=== PATIENT | female | born 1995 | race Caucasian/White ===

== ENCOUNTER 2020-12-30 11:12 | Emergency (ER) | payer MEDICAID ==
[~2020-12-30] VITALS: Ht 167.6 cm; Wt 119.3 kg
[2020-12-30 11:14] VITALS: BP 131/83
--- NOTE | 2020-12-30 11:17 | NUR ---
ambulated to bed 6
[2020-12-30] MEDS ORDERED: NACL 0.9% 1,000 ML IV ONE (11:40)
[2020-12-30] MEDS ORDERED: METOCLOPRAMIDE 10 MG/2 ML INJ VIAL IVP ONE (11:40)
[2020-12-30] MEDS ORDERED: ALUMINUM HYD/MAG/SIMETHICONE 30 ML UDC PO ONE (11:40)
[2020-12-30] MEDS ORDERED: HYDROcodone/APAP 5/325 MG 1 TAB TAB PO ONE (11:40)
--- NOTE | 2020-12-30 11:49 | NUR ---
ULTRASOUND AT BEDSIDE
[2020-12-30 12:00] LABS: APPEARANCE,URINE HAZY (CLEAR); BILIRUBIN,URINE 1+ (NEGATIVE); BLOOD, URINE NEGATIVE (NEGATIVE); COLOR,URINE YELLOW (YELLOW); LEUKOCYTE ESTERASE ,URINE TRACE (NEGATIVE); NITRITE, URINE NEGATIVE (NEGATIVE); UGLUCOSE NEGATIVE (NEGATIVE)
[2020-12-30 12:01] LABS: BASOPHILS % (AUTO) 0.3 % (0.0-2.0); EOSINOPHILS # (AUTO) 0.1 K/uL (0-0.4); HEMATOCRIT 39.9 % (36-48); HEMOGLOBIN 13.3 g/dL (12.0-16.0); LYMPHOCYTES # (AUTO) 1.7 K/uL (2.5-16.5); LYMPHOCYTES % (AUTO) 24.1 % (20.5-51.1); MEAN CORPUSCULAR HEMOGLOBIN 29 pg (27-31); MEAN CORPUSCULAR HGB CONC 33 g/dL (33-37); MEAN CORPUSCULAR VOLUME 86.1 fL (80-94); MONOCYTES # (AUTO) 0.5 K/uL (0.8-1.0); MONOCYTES % (AUTO) 6.6 % (1.7-9.3); NEUTROPHILS # (AUTO) 4.8 K/uL (1.8-7.7); PLATELET COUNT (AUTO) 368 K/uL (140-450); RED BLOOD CELL COUNT(AUTO) 4.64 MIL/uL (4.20-5.40); RED CELL DISTRIBUTION WIDTH 13.8 % (11.6-13.7); WHITE BLOOD COUNT (AUTO) 7.1 K/uL (4.8-10.8)
--- NOTE | 2020-12-30 12:04 | NUR ---
25 YEAR OLD FEMALE COMPLAINS OF ABDOMINAL PAIN, NAUSEA, VOMITTING X 1 WEEK. PT ALSO STATES THAT SHE HAS HAD BURNING URINATION WITH INCREASED FREQUENCY. PT AOX4, BREATHING EVEN AND UNLABORED, SKIN WARM AND DRY. BED IN LOWEST POSITION, LOCKED, BED RAIL UPX1. PMH - HYPOGLYCEMIA, GASTROPARESIS, MIGRAINE ALLERGIES - SULFAS, RASPBERRY
[2020-12-30 12:10] LABS: RBC,URINE 0-5 /HPF (0-5)
[2020-12-30 12:16] LABS: ALBUMIN 3.5 g/dL (3.4-5.0); ANION GAP 11.8 (8-16); CARBON DIOXIDE 25.1 mmol/L (21-32); CREATININE 0.8 mg/dL (0.6-1.3); POTASSIUM 3.9 mmol/L (3.5-5.1); TOTAL BILIRUBIN 0.5 mg/dL (0.0-1.0)
[2020-12-30] MEDS ORDERED: HALOPERIDOL IM 5 MG/ML VIAL IVP ONE (13:05)
--- NOTE | 2020-12-30 13:22 | NUR ---
CONSENT SIGNED BY PT FOR CT WITH CONTRAST.
--- NOTE | 2020-12-30 14:29 | NUR ---
PATIENT GIVEN CRACKERS AND JUICE FOR PO CHALLENGE
[2020-12-30] MEDS ORDERED: ONDA4TAB PO (14:44)
[2020-12-30 15:06] VITALS: BP 131/83
--- NOTE | 2020-12-30 15:06 | NUR ---
Patient discharged with v/s stable. Written and verbal after care instructions about abdominal pain given and explained. Patient alert, oriented and verbalized understanding of instructions. Ambulatory with steady gait. All questions addressed prior to discharge. ID band removed. Patient advised to follow up with PMD. Rx of zofran given. Patient educated on indication of medication including possible reaction and side effects. Opportunity to ask questions provided and answered.
== END 2020-12-30 15:06 | disposition home or self-care (01) ==
LOC: MED 11:12
DX: R10.32 Left lower quadrant pain (principal); R11.10 Vomiting, unspecified; Z79.899 Other long term (current) drug therapy; Z91.018 Allergy to other foods
CPT/HCPCS: 36415; 71045; 74177; 76700; 80053; 81001; 81025; 83690; 85025; 87086; 93005; 96361; 96374; 96375; 99285; J1630; J2765; J7030; Q9967; U0003

== ENCOUNTER 2021-06-13 01:38 | Emergency (ER) | payer SELFPAY ==
[~2021-06-13] VITALS: Ht 167.6 cm; Wt 104.3 kg
[~2021-06-13 01:38] MED LIST: ONDA4TAB PO
[2021-06-13 01:54] VITALS: BP 129/65
--- NOTE | 2021-06-13 04:30 | NUR ---
SEEN AND EXAMINED BY YESY
[2021-06-13] MEDS ORDERED: NAPR-1704 PO (04:44)
[2021-06-13] MEDS ORDERED: KETOROLAC 60 MG/2 ML VIAL IM ONE (04:45)
--- NOTE | 2021-06-13 04:45 | NUR ---
MEDICATED PER ERMDS ORDER, TOLERATED WELL.
[2021-06-13 05:09] VITALS: BP 120/78
== END 2021-06-13 05:09 | disposition home or self-care (01) ==
LOC: MED 01:38
DX: M79.602 Pain in left arm (principal); Z91.018 Allergy to other foods; Z79.899 Other long term (current) drug therapy
CPT/HCPCS: 73130; 96372; 99283; J1885

== ENCOUNTER 2021-07-16 12:34 | Emergency (ER) | payer MEDICAID ==
[~2021-07-16] VITALS: Ht 167.6 cm; Wt 99.8 kg
[~2021-07-16 12:34] MED LIST changes: +NAPR-1704 PO
[2021-07-16 12:43] VITALS: BP 117/99
--- NOTE | 2021-07-16 12:49 | NUR ---
PT W/C ASSISTED TO BED 2.
--- NOTE | 2021-07-16 13:03 | NUR ---
DR. ALBRECHT BEDSIDE EVALUATING PT
--- NOTE | 2021-07-16 13:08 | NUR ---
26 Y FEMALE WITH C/O LOWER BACK PAIN, HEADACHE, NAUSEA, BREAST TENDERNESS X 1 WEEK. PT STATED TODAY SHE STARTED TO EXPERINCE VAGINAL BLEEDING ALONG WITH LOWER ABDOMINAL CRAMPING. PT STATED SHE COULD BE , BUT HOME TEST WAS NEGATIVE. PT ADMITS TO UNPROTECTED SEX FREQUENTLY WITH PARTNER. BOWEL SOUNDS ACTIVE, BREATH SOUNDS CLEAR, AND S1/S2 HEARD. DENIES ANY CP OR SOB AT THIS TIME. PMH: ENLARGED LIVER/SPLEEN, HYPOGLYCEMIA, AND GASTROPERESIS ALLERGIES: RASPBERRIES, SULFAS
[2021-07-16] MEDS ORDERED: KETOROLAC 30 MG/ML VIAL IVP ONE (13:10)
[2021-07-16] MEDS ORDERED: ONDANSETRON 4 MG/2 ML VIAL IVP ONE (13:10)
[2021-07-16] MEDS ORDERED: NACL 0.9% 1,000 ML IV SCH (13:10)
[2021-07-16 13:48] LABS: BASOPHILS # (AUTO) 0.1 K/uL (0.00-0.22); BASOPHILS % (AUTO) 0.9 % (0.0-2.0); EOSINOPHILS # (AUTO) 0.5 K/uL (0-0.4); EOSINOPHILS % (AUTO) 5.3 % (0.0-4.0); HEMOGLOBIN 12.6 g/dL (12.0-16.0); LYMPHOCYTES # (AUTO) 1.7 K/uL (2.5-16.5); LYMPHOCYTES % (AUTO) 19.4 % (20.5-51.1); MEAN CORPUSCULAR HEMOGLOBIN 29 pg (27-31); MEAN CORPUSCULAR HGB CONC 33 g/dL (33-37); MEAN CORPUSCULAR VOLUME 86.4 fL (80-94); MONOCYTES # (AUTO) 0.6 K/uL (0.8-1.0); MONOCYTES % (AUTO) 7.4 % (1.7-9.3); NEUTROPHILS # (AUTO) 5.7 K/uL (1.8-7.7); PLATELET COUNT (AUTO) 352 K/uL (140-450); WHITE BLOOD COUNT (AUTO) 8.6 K/uL (4.8-10.8)
--- NOTE | 2021-07-16 13:53 | NUR ---
BLOOD WORK COLLECTED FROM 22 G IV ESTABLISHED AND WALKED OVER TO LAB
--- NOTE | 2021-07-16 13:54 | NUR ---
ULTRASOUND BEDSIDE WITH PATIENT
[2021-07-16 14:12] LABS: ALBUMIN 3.6 g/dL (3.4-5.0); ANION GAP 6.9 (8-16); CARBON DIOXIDE 27.6 mmol/L (21-32); CREATININE 0.7 mg/dL (0.6-1.3); POTASSIUM 3.5 mmol/L (3.5-5.1); TOTAL BILIRUBIN 0.5 mg/dL (0.0-1.0)
--- NOTE | 2021-07-16 15:02 | NUR ---
Patient appears to be resting comfortably in bed with eyes closed. Vital Signs within normal limits and charted. Respirations even and unlabored. Patient stated slight pain relief from medication. Will continue to monitor pt status
[2021-07-16 16:02] VITALS: BP 141/80
--- NOTE | 2021-07-16 16:02 | NUR ---
Patient discharged with v/s stable. Written and verbal after care instructions given and explained. Patient verbalized understanding. Ambulatory with steady gait. All questions addressed prior to discharge. Advised to follow up with PMD.
== END 2021-07-16 16:02 | disposition home or self-care (01) ==
LOC: MED 12:34
DX: N93.9 Abnormal uterine and vaginal bleeding, unspecified (principal); R11.0 Nausea; Z79.899 Other long term (current) drug therapy; Z91.018 Allergy to other foods
CPT/HCPCS: 36415; 76830; 80053; 81002; 81025; 83690; 85025; 87070; 87205; 87210; 96361; 96374; 96375; 99284; J1885; J2405; J7030; Q0092

== ENCOUNTER 2021-09-30 01:37 | Emergency (ER) | payer SELFPAY ==
[~2021-09-30] VITALS: Ht 172.7 cm; Wt 90.7 kg
[2021-09-30 01:53] VITALS: BP 120/73
--- NOTE | 2021-09-30 01:58 | NUR ---
pt w/c assisted to lobby
[2021-09-30] MEDS: KETOROLAC 60 MG/2 ML VIAL IM ONE (02:25)
[2021-09-30] MEDS ORDERED: ACET-8386 PO (03:31)
[2021-09-30] MEDS ORDERED: IBUP-2213 PO (03:31)
[2021-09-30] MEDS: MORPHINE SULFATE 4 MG/ML SYR IM ONE (04:36)
--- NOTE | 2021-09-30 04:43 | NUR ---
Patient discharged with v/s stable. Written and verbal after care instructions given and explained. Patient alert, oriented and verbalized understanding of instructions. Ambulatory with steady gait. All questions addressed prior to discharge. ID band removed. Patient advised to follow up with PMD. Rx of NORCO AND MOTRIN given. Patient educated on indication of medication including possible reaction and side effects. Opportunity to ask questions provided and answered.
== END 2021-09-30 04:43 | disposition home or self-care (01) ==
LOC: MED 01:37
DX: M25.562 Pain in left knee (principal); F17.210 Nicotine dependence, cigarettes, uncomplicated; Z88.8 Allergy status to other drugs, medicaments and biological substances; Z88.2 Allergy status to sulfonamides
CPT/HCPCS: 73560; 96372; 99284; J1885; J2270

== ENCOUNTER 2022-08-12 22:20 | Emergency (ER) | payer OTHER ==
[~2022-08-12] VITALS: Ht 172.7 cm; Wt 113.4 kg
[~2022-08-12 22:20] MED LIST changes: +ACET-8386 PO; +IBUP-2213 PO
[2022-08-12 22:40] VITALS: BP 120/76
--- NOTE | 2022-08-12 22:45 | NUR ---
TO GUILLERMINA VIA WHEELCHAIR
--- NOTE | 2022-08-12 22:48 | NUR ---
SEEN AND EXAMINED BY YESY
[2022-08-12] MEDS ORDERED: KETOROLAC 60 MG/2 ML VIAL IM ONE (22:50)
--- NOTE | 2022-08-12 22:50 | NUR ---
EKG DONE, NOTED BY YESY.
[2022-08-12] MEDS ORDERED: NAPR-54 PO (22:54)
[2022-08-12 23:20] VITALS: BP 120/76
--- NOTE | 2022-08-12 23:20 | NUR ---
Patient discharged with v/s stable. Written and verbal after care instructions given and explained. Patient alert, oriented and verbalized understanding of instructions. Wheel Chair Assisted with to car. All questions addressed prior to discharge. ID band removed. Patient advised to follow up with PMD. Rx of NAPROSYN given. Patient educated on indication of medication including possible reaction and side effects. Opportunity to ask questions provided and answered.
== END 2022-08-12 23:20 | disposition home or self-care (01) ==
LOC: MED 22:20
DX: M94.0 Chondrocostal junction syndrome [Tietze] (principal)
CPT/HCPCS: 93005; 96372; 99283; J1885

== ENCOUNTER 2023-04-12 14:45 | Emergency (ER) | payer OTHER ==
[~2023-04-12] VITALS: Ht 165.1 cm; Wt 86.2 kg
[~2023-04-12 14:45] MED LIST changes: -ACET-8386 PO; +ACET-8905 PO; +NAPR-54 PO
[2023-04-12 14:52] VITALS: BP 129/73; PULSE 78; RESP 17; TEMP 97.4; O2SAT 98
[2023-04-12 15:00] VITALS: O2SAT 98
[2023-04-12] MEDS ORDERED: IBUPROFEN 600 MG TAB PO ONE (15:00)
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
[2023-04-12] MEDS ORDERED: IBUP-2213 PO (15:45)
--- NOTE | 2023-04-12 15:46 | NUR ---
VOLAR FABRICATED SPLINT APPLIED
--- NOTE | 2023-04-12 16:13 | NUR ---
Patient discharged with v/s stable. Written and verbal after care instructions given and explained. Patient alert, oriented and verbalized understanding of instructions. Ambulatory with steady gait. All questions addressed prior to discharge. ID band removed. Patient advised to follow up with PMD. Rx of IBUPROFEN given. Opportunity to ask questions provided and answered.
--- NOTE | 2023-04-12 16:26 | NUR ---
The patient's care was reviewed and supervised by FRED LARA RN.
== END 2023-04-12 16:13 | disposition home or self-care (01) ==
LOC: MED 14:45
DX: S63.591A Other specified sprain of right wrist, initial encounter (principal); W22.8XXA Striking against or struck by other objects, initial encounter; Y93.89 Activity, other specified; Y92.89 Other specified places as the place of occurrence of the external cause; Y99.8 Other external cause status
CPT/HCPCS: 73110; 73130; 99284